=== PATIENT | female | born 1985 ===

== ENCOUNTER 2020-11-12 09:35 | Inpatient (IN) | payer OTHER ==
[~2020-11-12] VITALS: Ht 157.5 cm; Wt 75.0 kg
[2020-11-23] VITALS (18 sets, daily range): BP systolic 110–133; BP diastolic 66–92; PULSE 79–108; TEMP 97.7–98.3
--- NOTE | 2020-11-23 07:15 | NUR ---
Pt arrives on unit ambulatory with spouse for IOL for TOLAC. Changed into clean gown. EFM and toco applied. VSS. Denies regular ctx, LOF, vaginal beeding and reports GFM. IV started in LF. Labs drawn. LR infusing. Admisison assessment completed. Consents signed. Pt verbalizes POC to check cervix and if unfavorable c/s. [id number]-Dr. Coon at bedside. SVE per provider closed/high. Discusses need for c/s. Pt agrees to POC and prepped for surgery.
[2020-11-23] MEDS ORDERED: PRENATAL MVI (07:33)
[2020-11-23 07:57] LABS: BASO % 0.2 % (0.0-2.0); EOS # 0.1 (0.0-0.7); EOS % 0.7 % (0-4.0); GRAN # 7.2 (1.4-6.5); GRAN % 69.2 % (42.2-75.2); HEMATOCRIT 42.7 % (37.0-47.0); HEMOGLOBIN 14.7 g/dl (12.5-16.0); LYMPH # 2.1 (1.2-3.4); LYMPH % 19.7 % (20.0-51.0); MEAN CELL VOLUME 91 fl (80.0-100.0); MEAN CORPUSCULAR HEMOGLOBIN 31 pg (27.0-31.0); MEAN CORPUSCULAR HGB CONC 34 g/dl (33.0-37.0); MEAN PLATELET VOLUME 11.4 fl (7.4-10.4); MONO % 9.7 % (1.7-9.3); PLATELET COUNT 247 K/mm3 (130-400); RED BLOOD COUNT 4.71 M/mm3 (4.10-5.30); REDCELL DISTRIBUTION WIDTH-CV 13.7 % (11.5-14.5)
[2020-11-23] MEDS ORDERED: PERCOCET 325 MG1 TA2 PO (14:49)
[2020-11-23] MEDS ORDERED: IBU600 MG PO (14:49)
[2020-11-24 00:20] VITALS: BP 118/74; PULSE 90; TEMP 98.7
[2020-11-24 08:26] VITALS: BP 128/83; PULSE 103; TEMP 98
--- NOTE | 2020-11-24 11:39 | NUR ---
[employer] offered congrats to patient.
[2020-11-24 17:40] VITALS: BP 115/85; PULSE 97
[2020-11-24 21:15] VITALS: BP 119/79; PULSE 93; TEMP 98.1
[2020-11-25 07:30] VITALS: BP 112/81; PULSE 101; TEMP 97.8
--- NOTE | 2020-11-25 07:30 | NUR ---
Rests in bed, alert, holds baby. Denies any pain or discomfort at this time.
== END 2020-11-25 12:00 | disposition home or self-care (01) | DRG 788 ==
LOC: OB 11-21 06:12 → LDR 11-23 07:07 → OB 11-23 09:00
PROVIDERS: ADMIT Obstetrics & Gynecology
PROC: 10D00Z1 Extraction of Products of Conception, Low, Open Approach (ICD-10-PCS; principal; 2020-11-23)
DX: O48.0 Post-term pregnancy (principal); O34.211 Maternal care for low transverse scar from previous cesarean delivery; Z3A.41 41 weeks gestation of pregnancy; Z37.0 Single live birth
CPT/HCPCS: J0690; J1885; J2250; J2405; J2590; J2704; J3010; J7120